=== PATIENT | female | born 1980 | race Caucasian/White ===

== ENCOUNTER 2018-04-17 21:42 | Emergency (ER) | payer SELFPAY ==
[2018-04-17 22:26] VITALS: BP 125/74
--- NOTE | 2018-04-17 22:39 | RADIOLOGY REPORT (SQ) ---
EXAM DESCRIPTION: XR ANKLE 3 OR MORE VIEWS COMPLETED DATE/TME: 04/17/2018 21:54 CLINICAL HISTORY: 37 years Female, pain COMPARISON: None. Findings: Bones, joints, and soft tissues of the RIGHT XR ANKLE 3 VIEWS appear intact. IMPRESSION: No acute findings.
[2018-04-18] MEDS ORDERED: ENOXAPARIN SODIUM INJ 120 MG/0.8 ML DISP.SYRIN SUBCUT ONE (03:28)
--- NOTE | 2018-04-18 03:58 | ER Document Report ---
ED General - General Chief Complaint: Ankle Pain Stated Complaint: RIGHT ANKLE/CALF PAIN Time Seen by Provider: 04/18/18 02:12 TRAVEL OUTSIDE OF THE [place] IN LAST 30 DAYS: No - HPI Notes: Patient presents emergency department for evaluation of right leg swelling. She recently drove down, on Tuesday, from [place]. She does have a history of DVTs. She has a [place] filter. She is not on anticoagulation. She denies any chest pain or difficulty breathing. She denies any injury. She states she does have some mild aching pain in her right posterior calf. - Related Data Allergies/Adverse Reactions: No Known Allergies Allergy (Unverified 04/17/18 22:02) Past Medical History - General Information source: Patient - Social History Smoking Status: Current Every Day Smoker Chew tobacco use (# tins/day): No Frequency of alcohol use: None Drug Abuse: None Family History: Reviewed & Not Pertinent Patient has suicidal ideation: No Patient has homicidal ideation: No - Past Medical History Cardiac Medical History: Reports: Hx DVT Renal/ Medical History: Denies: Hx Peritoneal Dialysis Physical Exam - Vital signs Vitals: Temp Pulse Resp BP Pulse Ox 98.6 F 90 16 125/74 99 04/17/18 22:24 04/17/18 22:24 04/17/18 22:24 04/17/18 22:24 04/17/18 22:24 - Notes Notes: Vital signs reviewed, please refer to chart. Patient is normocephalic, atraumatic. Pupils equal round, reactive to light. Neck is supple without meningismus. Heart is regular rate and rhythm. Lungs are clear to auscultation bilaterally. Abdomen is soft, nontender, normoactive bowel sounds throughout. Extremities without cyanosis, clubbing. Examination of the right lower extremity yields 1+ pitting edema. Positive posterior calf tenderness. Dorsalis pedis and posterior tibial pulses are 2+, capillary refill is brisk. peripheral pulses are equal. Skin is warm and dry. Patient is awake, alert, neurological exam is nonfocal. Course - Re-evaluation Re-evalutation: 04/18/18 06:27 Patient presents emergency department for evaluation. She had an ankle xray as ordered by triage, results negative for any acute findings. The patient was primarily concerned about the possibility of a DVT. Given the fact that she does have a history of this, I was inclined to treat her for it. She was given Lovenox 1 mg/kg subcutaneously. She has no signs of PE at this time. We discussed the symptoms of this. She does not fact actually have a [place] filter in place, so it makes it less likely, but certainly not impossible. She voiced understanding to this. She was given an outpatient order to have Doppler ultrasound performed. She understands if she has worsening or new concerning symptoms of any sort she is to return immediately to the emergency department for evaluation. - Vital Signs Vital signs: Temp Pulse Resp BP Pulse Ox 98.6 F 90 16 125/74 99 04/17/18 22:24 04/17/18 22:24 04/17/18 22:24 04/17/18 22:24 04/17/18 22:24 Discharge - Discharge Clinical Impression: Swelling of right lower extremity Condition: Stable Disposition: HOME, SELF-CARE Additional Instructions: Follow-up as instructed to have testing for a possible clot in your leg. If you develop chest pain, difficulty breathing, or any other new or concerning symptoms, return immediately to the emergency department for evaluation. Forms: Follow-Up Outpatient Testing
== END 2018-04-18 04:10 | disposition home or self-care (01) ==
LOC: ER 21:42
DX: M79.89 Other specified soft tissue disorders (principal); F17.200 Nicotine dependence, unspecified, uncomplicated; Z86.718 Personal history of other venous thrombosis and embolism
CPT/HCPCS: 99283; 96372; 73610; J1650